=== PATIENT | female | born 1950 | race Caucasian/White ===

== ENCOUNTER 2017-10-23 10:36 | Inpatient (IN) | payer BC, OTHER ==
[2017-09-22 10:33] VITALS: BMI 28.0
--- NOTE | 2017-09-22 11:05 | PAT Medication Instructions ---
Service Date Sep 22, 2017. Current Home Medication List Acetaminophen (Tylenol), 1-2 TAB PO UD PRN for Pain Cholecalciferol (Vitamin D3), 1 TAB PO QAM Fish Oil ([place]-3), 1 CAP PO QAM Magnesium Oxide (Magnesium), 1 CAP PO QAM Pantoprazole (Protonix), 40 MG PO QAM [Lortab], 1 DOSE PO UD PRN for Pain Medication Instructions For Your Scheduled Surgery - Hold the following medications 2 weeks prior to surgery: Fish Oil ([place]-3), 1 CAP PO QAM - Hold the following medications the morning of surgery: Cholecalciferol (Vitamin D3), 1 TAB PO QAM Magnesium Oxide (Magnesium), 1 CAP PO QAM - Take the following medications the morning of surgery with a sip of water: [Lortab], 1 DOSE PO UD PRN for Pain (okay to take up to 4 hours prior to surgery if needed) Pantoprazole (Protonix), 40 MG PO QAM Acetaminophen (Tylenol), 1-2 TAB PO UD PRN for Pain (okay to take up to 4 hours prior to surgery if needed) - Take the following medications as scheduled the night before surgery: [Lortab], 1 DOSE PO UD PRN for Pain (if needed) Acetaminophen (Tylenol), 1-2 TAB PO UD PRN for Pain (if needed) If you have any questions please call us at [phone] or [phone] or [phone]
[2017-09-22 11:54] LABS: BASO % 0.6 %; BASO ABS # 0.03 K/uL (0-0.2); EOS ABS # 0.21 K/uL (0-0.5); HEMATOCRIT 41.7 % (37-47); HEMOGLOBIN 13.7 g/dL (12.0-16.0); IG# 0.01 K/uL (0.00-0.02); LYMPH % 25.8 %; LYMPH ABS # 1.35 K/uL (1.2-3.4); MEAN CELL VOLUME 94.3 fL (80-100); MEAN CORPUSCULAR HGB CONC 32.9 g/dl (32-36); MEAN PLATELET VOLUME 9.1 fL (7.4-10.4); MONO % 7.8 %; MONO ABS # 0.41 K/uL (0.11-0.59); NEUT % 61.6 %; NEUT ABS # 3.22 K/uL (1.4-6.5); PLATELET COUNT 301 K/uL (130-400); RED CELL DISTRIBUTION WIDTH CV 13.5 % (11.5-14.5); RED CELL DISTRIBUTION WIDTH SD 46.4 fL (36.4-46.3); WHITE BLOOD COUNT 5.23 K/uL (4.8-10.8)
[2017-09-22 12:09] LABS: PTT PATIENT 25.9 SECONDS (21.0-31.0)
--- NOTE | 2017-09-22 12:18 | DIAGNOSTIC IMAGING REPORT ---
CHEST 2 VIEWS ROUTINE HISTORY: 67 years-old Female PAT preoperative exam. No acute chest complaints COMPARISON: None available TECHNIQUE: PA and lateral views of the chest FINDINGS: Cardiomediastinal and hilar silhouettes are within normal limits. No pneumothorax, pleural effusion, focal airspace consolidation or overt pulmonary edema. Surgical clips project over the epigastric region and abdominal right upper quadrant. There is mild convex right curvature of the midthoracic spine. Degenerative changes are seen from the spine and shoulders. IMPRESSION: No acute process. The above report was generated using voice recognition software. It may contain grammatical, syntax or spelling errors. Electronically signed by: Mike Villela M.D. 09/22/2017 12:16 PM Dictated Date/Time: 09/22/2017 12:15 PM
[2017-09-22 12:52] LABS: ALBUMIN 3.8 gm/dl (3.4-5.0); CALCIUM 9.1 mg/dl (8.5-10.1); CREATININE 0.71 mg/dl (0.60-1.20); POTASSIUM 3.9 mmol/L (3.5-5.1)
--- NOTE | 2017-10-21 08:22 | History and Physical ---
History & Physical Date Oct 21, 2017. Chief Complaint RIGHT HIP PAIN AND RECURRENT DISLOCATION RIGHT HIP PROSTHESIS. History of Present Illness The patient is a 67 year old female with complaints of right hip pain and recurrent dislocations. Had MY in [place] many years ago. cup is very small and vertical. Workup for infection was negative as well. Additional History Hepatic Disease: No Endocrine Disorder: No Kidney Disease: No Hypertension: No Heart Disease: No Bleeding Tendencies: No Infectious Diseases: No Allergies Coded Allergies: No Known Allergies (Unverified , 09/22/17) Home Medications Scheduled Cholecalciferol (Vitamin D3), 1 TAB PO QAM Fish Oil ([place]-3), 1 CAP PO QAM Magnesium Oxide (Magnesium), 1 CAP PO QAM Multivitamin (Multivitamin), Unknown Dose PO BID Pantoprazole (Protonix), 40 MG PO QAM Scheduled PRN Acetaminophen (Tylenol), 1-2 TAB PO UD PRN for Pain [Lortab], 1 DOSE PO UD PRN for Pain Physical Examination Skin: warm/dry, no rash Eyes: normal inspection, EOMI, sclerae normal ENT: normal ENT inspection, pharynx normal Head: normocephalic, atraumatic Neck: supple, no adenopathy, trachea midline Respiratory/Chest: lungs clear, normal breath sounds, no respiratory distress Cardiovascular: regular rate, rhythm, no edema, no murmur Abdomen / GI: normal bowel sounds, non tender Back: normal inspection Extremities: normal inspection, normal range of motion, + pertinent finding ( pain with rom right hip) Neurologic/Psych: no motor/sensory deficits, alert, normal reflexes, oriented x 3 Diagnosis Recurrent Instability right my. Plan of Treatment PLAN IS TO ADMIT AND UNDERGO REVISION RIGHT MY. ACETABULAR COMPONENT ONLY. MAY NEED CONSTRAINED LINER, HOME PT AND ASA POST OP.
[2017-10-23] VITALS (8 sets, daily range): BP systolic 111–157; BP diastolic 70–94; PULSE 56–85; TEMP 36.3–36.6; O2SAT 96–100; Ht 167.6 cm; Wt 80.1 kg
[~2017-10-23] VITALS: Ht 167.6 cm; Wt 80.1 kg
[2017-10-23] MEDS: TRANEXAMIC ACID INJ 1,000 MG x 2 Bags IV SCH ×4 (06:30→12:25)
[~2017-10-23 10:36] MED LIST: ACET-1256 PO; ACETAMINOPHEN 500 MG TAB PO SCH; BUPIVACAINE 0.5 % 5 MG/1 ML PF 10ML VIAL ONE; CEFAZOLIN 2000MG IV PUSH 15 ML IV SCH; CHOL20007 PO; CeleBREX 200 MG CAP PO SCH; DEXAMETHASONE 4 MG TAB PO SCH; FAMOTIDINE 20 MG TAB PO SCH; HYDRELX3 PO; LACTATED RINGER'S 1000ML 1,000 ML IV SCH; LACTATED RINGER'S 1000ML 500 ML IV SCH; LACTATED RINGER'S 1000ML IV SCH; MAGN1CAP4 PO; METOCLOPRAMIDE HCL 10 MG TAB PO SCH; MULT-506 PO; OMEG10007 PO; PANT40TA PO; ROPIVACAINE 5MG/ML 30 ML 150 MG, BUPIVACAINE 0.5% MPF INJ 30 ML, EpINEphrine HCL INJ 0.... INFIL SCH
[2017-10-23] MEDS ORDERED: SALINE EYE OPB (11:04)
[2017-10-23] MEDS ORDERED: PROPOFOL IV EMULSION 10 MG/ML 20 ML VIAL IV ONE (11:36)
[2017-10-23] MEDS ORDERED: MIDAZOLAM HCL 1 MG/ML 2ML VIAL ONE ×2 (11:37→13:02)
[2017-10-23] MEDS ORDERED: ONDANSETRON INJ 2 MG/ML 2 ML VIAL IV PRN ×3 (11:45→14:30)
[2017-10-23] MEDS ORDERED: EpHEDrine SULFATE INJ 50 MG/ML AMP IV PRN ×2 (11:45→12:45)
[2017-10-23] MEDS ORDERED: ATROPINE SULFATE 0.1 MG/ML 5ML SYR IV PRN ×2 (11:45→12:45)
[2017-10-23] MEDS ORDERED: FENTANYL CITRATE INJ 50 MCG/1 ML 2 ML VIAL IV PRN ×2 (11:45→12:45)
[2017-10-23] MEDS ORDERED: PROMETHAZINE HCL INJ 6.25 MG in SODIUM CHLORIDE 0.9% 50ML 50 ML IV PRN (11:45)
--- NOTE | 2017-10-23 11:52 | History & Physical Bridge Note ---
H&P Re-Evaluation Bridge Note: I have examined the patient, reviewed the History & Physical and in the interval since the performance of the History & Physical I have noted the following changes of clinical significance: No changes noted
[2017-10-23] MEDS ORDERED: ORTHO JOINT ANESTHETIC ONE (12:17)
[2017-10-23] MEDS ORDERED: POVIDONE-IODINE OP SOLN 30 ML BTL ONE (12:17)
[2017-10-23] MEDS ORDERED: BACITRACIN 50000 UNIT VIAL ONE (12:17)
[2017-10-23] MEDS ORDERED: EpHEDrine SULFATE INJ 50 MG/ML AMP ONE (13:07)
[2017-10-23] MEDS ORDERED: FENTANYL CITRATE INJ 50 MCG/1 ML 2 ML VIAL ONE (14:05)
[2017-10-23] MEDS ORDERED: ALUMINUM/MAGNESIUM/SIMETH (MAALOX MAX) 30 ML UDC PO PRN (14:30)
[2017-10-23] MEDS ORDERED: ZOLPIDEM TARTRATE 5 MG TAB PO PRN (14:30)
[2017-10-23] MEDS ORDERED: BISACODYL 10 MG SUPP PR PRN (14:30)
[2017-10-23] MEDS ORDERED: MAGNESIUM HYDROXIDE SUSP 30 ML UDC PO PRN (14:30)
[2017-10-23] MEDS ORDERED: CEFAZOLIN IV 2 MG in DEXTROSE 5% 50ML 50 ML IV SCH (14:30)
[2017-10-23] MEDS ORDERED: PHENYLEPHRINE HCL INJ 10 MG/ML VIAL ONE (14:37)
--- NOTE | 2017-10-23 14:37 | [facility] Operative Report ---
Operative Report Operative Date Oct 23, 2017. Pre-Operative Diagnosis recurrent instability right hip Post-Operative Diagnosis recurrent instability right hip Procedure(s) Performed Right Total Hip Revision Acetabular Component Surgeon Dr. 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 She had her original hip surgery 1997 unfortunately had multiple dislocations. X-rays revealed a very vertical cup and a small acetabular cup and already had a +[address] secondary to a leg length problem. Her leg lengths are currently equal are currently equal with a +10. Infection workup was negative. Therefore, they have has decided to undergo elective surgical intervention. All risks and benefits of the surgery were discussed with the patient and the family in entirety. PROCEDURE: The patient was brought to the operating room and properly identified by myself, anesthesia, and staff. Patient was given a spinal anesthetic and placed on the operating table with the right hip up. The hip was then prepped and draped in the standard orthopedic fashion. We made a standard posterolateral approach over the greater trochanteric area. We then dissected down to subcutaneous tissue until the fascia was identified. We incised the fascia in line with the skin incision. We then split the gluteus raymond muscles with finger dissection. We then put the Charnley retractor in place. We placed the retractor underneath the gluteus medius to expose the piriformis. The piriformis was then tagged with a tag suture and released from the insertion from the greater trochanteric area with the use of electrocautery. We then performed a T capsulotomy and the femoral head and neck were atraumatically dislocated. Then removed the old 20 mm metal head again was a +10. Then removed all the scar tissue from around the acetabular component. Then placed retractor anteriorly as well as inferiorly then using the Biomet acetabular explant and was able to remove the component with minimal difficulty. Bone stock evaluation of the posterior wall anterior wall and dome and medial wall were all intact.. We then placed the retractor around the acetabulum. We then began to ream the acetabulum to the appropriate size. We then impacted the cup into place and had a very good fixation within the pelvis. We then put the liner in place as well. Then placed a trial head in the place and really had very good range of motion had really good stability but even with a +10 when we performed the flores test, I could literally pull it out of the liner in dislocate easily. So frankly her hip was actually pretty stable with the new implant in the correct position and leg lengths equal , however the flores test was just too much. Therefore I decided to place a constrained liner in place. WE had very good range of motion, excellent stability, and excellent leg length equality. We removed the trial components and irrigated the wound. We then impacted the components in place and irrigated the wound once more. We then closed the capsule and fascia with a 0 Vicryl suture, the deep dermis with 2-0 Vicryl suture, and finally the skin with a running 3-0 Vicryl subcuticular stitch. A sterile dressing was applied. The patient was taken to the recovery room in stable condition. Due to the complex nature of the procedure, the entire surgery was performed with the operational assistance of Williams Gordon PA-C. The assistant case manager was under direct supervision, was involved in the actual performance of all aspects of the surgical procedure including hemostasis, tissue retraction and incision, instrument management, patient positioning, and wound closure. I attest to the content of the Intraoperative Record and any orders documented therein. Any exceptions are noted below.
[2017-10-23] MEDS ORDERED: LIDOCAINE HCL 2% 2 ML VIAL (20MG/ML) ONE (15:04)
--- NOTE | 2017-10-23 15:33 | Anesthesiology Progress Note ---
Anesthesia Post Op Note Date & Time Oct 23, 2017 at 15:33 Vital Signs Pain Intensity: 0 Vital Signs Past 12 Hours Date Time Temp Pulse Resp B/P (MAP) Pulse Ox O2 Delivery O2 Flow Rate FiO2 10/23/17 15:28 62 14 10/23/17 15:28 63 14 100 10/23/17 15:26 36.5 61 16 121/71 (82) 100 Nasal Cannula 2 10/23/17 15:26 121/71 10/23/17 15:23 59 10 100 10/23/17 15:23 59 10 10/23/17 15:21 111/68 10/23/17 15:18 58 26 10/23/17 15:18 58 26 100 10/23/17 15:17 64 11 10/23/17 15:17 64 11 100 10/23/17 15:16 107/62 10/23/17 15:12 67 13 10/23/17 15:12 67 13 100 10/23/17 15:11 115/71 10/23/17 15:07 57 12 100 10/23/17 15:07 56 12 10/23/17 15:06 103/64 10/23/17 15:02 66 13 100 10/23/17 15:02 66 13 10/23/17 15:01 105/68 10/23/17 14:58 105/75 10/23/17 14:57 71 16 99 10/23/17 14:57 71 16 10/23/17 14:57 36.1 68 14 105/75 100 Oxymask 10 10/23/17 10:50 36.6 62 20 157/94 98 Room Air Notes Mental Status: alert / awake / arousable, participated in evaluation Pt Amnestic to Procedure: Yes Nausea / Vomiting: adequately controlled Pain: adequately controlled Airway Patency, RR, SpO2: stable & adequate BP & HR: stable & adequate Hydration State: stable & adequate Neuraxial Anesthesia: was administered, sensory block is resolving Anesthetic Complications: no major complications apparent
[2017-10-23] MEDS: OXYCODONE HCL IR 5 MG TAB (IMMEDIATE RELEASE) PO PRN ×2 (18:34→22:36)
[2017-10-23] MEDS: SODIUM CHLORIDE 0.9% 1000ML 1,000 ML IV SCH (19:20)
[2017-10-23] MEDS: DOCUSATE SODIUM 100 MG CAP PO SCH (20:36)
[2017-10-23] MEDS: ASPIRIN 81 MG ECTAB PO SCH (20:36)
[2017-10-23] MEDS: CEFAZOLIN IV 2,000 MG in SYRINGE 0 ML IV SCH (20:36)
[2017-10-23] MEDS ORDERED: TRANEXAMIC ACID INJ 1,000 MG in SODIUM CHLORIDE 0.9% 100ML 100 ML IV SCH (21:00)
[2017-10-23] MEDS ORDERED: PNEUMOCOCCAL POLYSACCHARIDES 25 MCG/0.5 ML VIAL/SYR IM. ONE (21:00)
[2017-10-23] MEDS ORDERED: PNEUMOCOCCAL ADMINISTRATION CHARGE ONE (21:00)
[2017-10-23] MEDS: ACETAMINOPHEN 500 MG TAB PO SCH (22:15)
[2017-10-24 02:55] VITALS: BP 105/65; PULSE 67; TEMP 36.6; O2SAT 98
[2017-10-24] MEDS: CEFAZOLIN IV 2,000 MG in SYRINGE 0 ML IV SCH (05:03)
[2017-10-24] MEDS: ACETAMINOPHEN 500 MG TAB PO SCH ×2 (05:03→13:35)
[2017-10-24] MEDS: SODIUM CHLORIDE 0.9% 1000ML 1,000 ML IV SCH ×2 (05:03→08:27)
[2017-10-24 06:52] VITALS: BP 103/66; PULSE 68; TEMP 36.5; O2SAT 97
[2017-10-24 06:57] LABS: HEMATOCRIT 31.8 % (37-47); HEMOGLOBIN 10.5 g/dL (12.0-16.0); IG# 0.03 K/uL (0.00-0.02); LYMPH % 9.9 %; LYMPH ABS # 1.03 K/uL (1.2-3.4); MEAN CELL VOLUME 93.5 fL (80-100); MEAN CORPUSCULAR HEMOGLOBIN 30.9 pg (25-34); MEAN PLATELET VOLUME 9.1 fL (7.4-10.4); MONO % 8.8 %; MONO ABS # 0.91 K/uL (0.11-0.59); NEUT ABS # 8.41 K/uL (1.4-6.5); PLATELET COUNT 227 K/uL (130-400); RED CELL DISTRIBUTION WIDTH CV 13.5 % (11.5-14.5); RED CELL DISTRIBUTION WIDTH SD 45.9 fL (36.4-46.3); WHITE BLOOD COUNT 10.38 K/uL (4.8-10.8)
[2017-10-24] MEDS ORDERED: DEXAMETHASONE INJ 10 MG in SYRINGE 0 ML IV SCH (07:30)
[2017-10-24] MEDS: DOCUSATE SODIUM 100 MG CAP PO SCH (08:26)
[2017-10-24] MEDS: OXYCODONE HCL IR 5 MG TAB (IMMEDIATE RELEASE) PO PRN ×2 (08:27→13:34)
[2017-10-24] MEDS: ASPIRIN 81 MG ECTAB PO SCH (08:27)
--- NOTE | 2017-10-24 11:00 | Orthopedic Progress Note ---
Orthopedic Progress Note Date of Service Oct 24, 2017. Subjective Post OP Day: 1 Reports: feeling well, Denies: chest pain, SOB, nausea / vomiting, light headedness, calf pain Objective calves soft nontender, N/V intact, capillary refill less than 2 sec., dressing C /D/I (PREVENA), A&O x3, toes mobile Date Time Temp Pulse Resp B/P (MAP) Pulse Ox O2 Delivery O2 Flow Rate FiO2 10/24/17 07:30 Room Air 10/24/17 06:52 36.5 68 18 103/66 (78) 97 Room Air 10/24/17 02:55 36.6 67 16 105/65 (78) 98 Room Air 10/23/17 23:16 Room Air 10/23/17 22:50 36.6 77 16 111/70 (84) 96 Room Air 10/23/17 20:15 36.5 69 16 127/76 (93) 98 Room Air 10/23/17 18:38 36.4 76 16 115/77 (90) 96 Room Air 10/23/17 17:40 36.3 65 16 125/83 (97) 100 Nasal Cannula 2.0 10/23/17 16:40 36.3 56 16 127/77 (94) 100 Nasal Cannula 2.0 10/23/17 16:10 36.5 85 16 120/76 (91) 98 Nasal Cannula 2.0 10/23/17 16:00 Nasal Cannula 2.0 10/23/17 15:40 36.4 64 18 117/76 (90) 100 Nasal Cannula 2.0 10/23/17 15:40 Nasal Cannula 2.0 10/23/17 15:34 61 23 100 10/23/17 15:34 61 23 10/23/17 15:31 118/79 10/23/17 15:29 65 15 10/23/17 15:29 65 15 100 10/23/17 15:28 62 14 10/23/17 15:28 63 14 100 10/23/17 15:26 36.5 61 16 121/71 (82) 100 Nasal Cannula 2 10/23/17 15:26 121/71 10/23/17 15:23 59 10 100 10/23/17 15:23 59 10 10/23/17 15:21 111/68 10/23/17 15:18 58 26 10/23/17 15:18 58 26 100 10/23/17 15:17 64 11 10/23/17 15:17 64 11 100 10/23/17 15:16 107/62 10/23/17 15:12 67 13 10/23/17 15:12 67 13 100 10/23/17 15:11 115/71 10/23/17 15:07 57 12 100 10/23/17 15:07 56 12 10/23/17 15:06 103/64 10/23/17 15:02 66 13 100 10/23/17 15:02 66 13 10/23/17 15:01 105/68 10/23/17 14:58 105/75 10/23/17 14:57 71 16 99 10/23/17 14:57 71 16 10/23/17 14:57 36.1 68 14 105/75 100 Oxymask 10 Laboratory Results 24 Hours: Test 10/24/17 05:55 White Blood Count 10.38 K/uL Red Blood Count 3.40 M/uL Hemoglobin 10.5 g/dL Hematocrit 31.8 % Mean Corpuscular Volume 93.5 fL Mean Corpuscular Hemoglobin 30.9 pg Mean Corpuscular Hemoglobin Concent 33.0 g/dl Platelet Count 227 K/uL Mean Platelet Volume 9.1 fL Neutrophils (%) (Auto) 81.0 % Lymphocytes (%) (Auto) 9.9 % Monocytes (%) (Auto) 8.8 % Eosinophils (%) (Auto) 0.0 % Basophils (%) (Auto) 0.0 % Neutrophils # (Auto) 8.41 K/uL Lymphocytes # (Auto) 1.03 K/uL Monocytes # (Auto) 0.91 K/uL Eosinophils # (Auto) 0.00 K/uL Basophils # (Auto) 0.00 K/uL Assessment & Plan Assessment: POD#1 SP RIGHT HIP REVISION Plan: PT/OT DVT PROPH PAIN MANAGEMENT DC PLANNING- DC HOME TODAY AFTER PT
[2017-10-24] MEDS ORDERED: CLB200 PO (11:07)
[2017-10-24] MEDS ORDERED: ASPI-320 PO (11:07)
[2017-10-24] MEDS ORDERED: ULT50X PEG (11:07)
[2017-10-24] MEDS ORDERED: ONDA-170 PO (11:07)
--- NOTE | 2017-10-24 11:07 | Discharge Instructions ---
Discharge Instructions Date of Service Oct 24, 2017. Admission Reason for Admission: Right Hip Internal Joint Prosthesis Dislocation Discharge Discharge Diagnosis / Problem: SP REVISION RIGHT MY Discharge Goals Goal(s): Decrease discomfort, Improve function, Increase independence Activity Recommendations Activity Limitations: per Instructions/Follow-up section . Instructions / Follow-Up Instructions / Follow-Up ACTIVITY RECOMMENDATIONS: SELF CARE INSTRUCTIONS AFTER TOTAL HIP REPLACEMENT Until the incision and soft tissues around your hip have healed, there is a possibility that the hip prosthesis could dislocate. A. Observe the following precautions to prevent dislocation: 1. Don't bend your hip greater than 90 degrees. 2. Avoid crossing your legs or ankles while standing or lying. 3. Sit with your feet placed 6 inches apart. 4. When sitting, keep your knees below your hips. Sit on a firm surface, avoid deep, soft chairs and couches. Use an elevated toilet seat in the bathroom. 5. Don't bend over at the waist. Use a long handled shoehorn and a sock aid to help you put on your shoes and socks. A weir fisherman can help you mushroom picker objects that are too high or too low to reach. 6. Keep car riding to a minimum for at least one month after surgery. B. Your balance may be shaky for a while. Use crutches or a walker until directed by your doctor. C. Use hand rails when walking on stairs. D. Wear low heeled shoes with non-slip soles. E. Be sure that your floors are free of things that could trip you - throw rugs , electrical cords, small objects. Avoid wet and waxed floors, especially with crutches and canes. F. Try to walk several times a day with rest periods between. G. Continue with all the exercises taught to you in the hospital. Again, make walking a part of your daily routine. SPECIAL CARE INSTRUCTIONS: VERY IMPORTANT TO READ AND REVIEW A. You may still be at risk for phlebitis and blood clots. 1. Wear surgical stockings (ASH hose) for 2 weeks after surgery to improve circulation and reduce swelling. 2. Take Aspirin 81mg twice daily for 4 weeks or as directed by your doctor. This is your blood thinner. 3. High risk patients may be prescribed a stronger blood thinner if necessary. 4. If you are on Coumadin normally, your family doctor/hand clipper should monitor your blood work. Expect a phone call the day of or the day after bloodwork is drawn to adjust your dosage. B. You must take antibiotics before having dental work, bladder, bowel and other surgery. Your doctor will provide you with a permanent card to carry describing precautions. C. Call [facility] if you have a fever, redness or swelling around the incision, cloudy drainage from incision, or sudden increase in pain in your hip, not relieved by your regular pain medication. D. Please call the office at if you have any concerns or questions about your operation or recovery. * YOU MAY SHOWER, NO TUB BATHS UNTIL CLEARED BY YOUR DOCTOR. * WEAR ASH HOSE 20 HOURS PER DAY FOR 2 WEEKS. * YOU SHOULD USE A WALKER OR CRUTCHES FOR 2-4 WEEKS. THIS WILL HELP PREVENT STRAIN ON YOUR HIP MUSCLE AND ALLOW IT TO HEAL PROPERLY. YOU MAY WEAN TO A CANE TOLERATED. * MOST PATIENTS WILL HAVE HOME NURSING FOR THERAPY. IF YOU DECIDE TO DO OUTPATIENT PHYSICAL THERAPY, PLEASE SCHEDULE THIS 3 TIMES PER WEEK. Prevena- This is a large suction dressing covering your incision. This will help pull any excess drainage from the wound and allow your incision to heal properly. You may shower with this if you can keep the unit outside of the shower. If any bleeding or leakage is noted please call your doctor's office. This will remain on your incision for 7 days and then should be removed. This can be done yourself or by the home nursing staff if applicable. The entire unit is disposable once removed. Once removed, keep incision clean and dry. If redness or drainage is noted, please call your surgeon. FOLLOW UP VISIT: If appointment is not already scheduled: Please call [facility] to make a follow-up appointment for 2 weeks after your surgery at . Current Hospital Diet Patient's current hospital diet: Regular Diet Discharge Diet Recommended Diet: Regular Diet Procedures Procedures Performed: Right Total Hip Revision Acetabular Component Pending Studies Studies pending at discharge: no Medical Emergencies . Who to Call and When: Medical Emergencies: If at any time you feel your situation is an emergency, please call 911 immediately. . Non-Emergent Contact Non-Emergency issues call your: Surgeon . "Provider Documentation" section prepared by Hue Fuentes. .
[2017-10-24 11:31] VITALS: BP 103/66; PULSE 68; TEMP 36.5; O2SAT 97
== END 2017-10-24 13:39 | disposition home health service (06) | DRG 468 ==
LOC: C.ACU 10:36 → C.3E 11:45 → ENRESERV 15:09
PROVIDERS: ADMIT Orthopaedic Surgery; ATTEND Orthopaedic Surgery
PROC: 0SUA09Z Supplement Right Hip Joint, Acetabular Surface with Liner, Open Approach (ICD-10-PCS; principal; 2017-10-23 13:15)
PROC: 0SPA0JZ Removal of Synthetic Substitute from Right Hip Joint, Acetabular Surface, Open Approach (ICD-10-PCS; principal; 2017-10-23 13:15)
PROC: 0SP909Z Removal of Liner from Right Hip Joint, Open Approach (ICD-10-PCS; principal; 2017-10-23 13:15)
PROC: 0SR Lower Joints, Replacement (ICD-10-PCS; principal; 2017-10-23 13:15)
DX: T84.020A Dislocation of internal right hip prosthesis, initial encounter (principal); Z96.641 Presence of right artificial hip joint; Z79.899 Other long term (current) drug therapy; Y83.1 Surgical operation with implant of artificial internal device as the cause of abnormal reaction of the patient, or of later complication, without mention of misadventure at the time of the procedure